=== PATIENT | male | born 1945 | race Caucasian/White ===

== ENCOUNTER 2016-06-10 15:08 | Outpatient (CLI) | payer OTHER, MEDICARE ==
--- NOTE | 2016-06-10 15:34 | DIAGNOSTIC IMAGING REPORT ---
PROCEDURE: CT HEAD WITHOUT CONTRAST INDICATION: MEMORY LOSS, initial encounter TECHNIQUE: Noncontrast axial images with sagittal and coronal reformations. COMPARISON: None. FINDINGS: Normal sulci and ventricular system. Mild of white matter chronic ischemic changes. No evidence of acute intracranial process. Visualized mastoids and sinuses are clear. IMPRESSION: 1. Mild white matter chronic ischemic changes
== END 2016-06-10 23:00 ==
LOC: CT SRH 15:08
DX: R41.3 Other amnesia (principal); R90.82 White matter disease, unspecified

== ENCOUNTER 2016-06-24 12:43 | Outpatient (CLI) | payer OTHER, MEDICARE ==
--- NOTE | 2016-06-24 15:37 | DIAGNOSTIC IMAGING REPORT ---
PROCEDURE: MR BRAIN W/WO CONTRAST INDICATION: MEMORY LOSS TECHNIQUE: Multiplanar multisequence MRI imaging of the brain without contrast. Post administration of 20 ml ProHance gadolinium based IV contrast, three plane T1 fat sat sequences were obtained. COMPARISON: Head CT dated 06/18/2016 FINDINGS: The midline structures are normally formed. The ventricular system is normal in size. Basal cisterns are patent. Flow voids in the major intracranial vessels are normal. No vascular malformations seen post contrast. Moderate periventricular small-vessel ischemic disease. No restricted diffusion to suggest acute ischemia. No evidence of acute or chronic intraparenchymal or extra-axial hemorrhage. No mass, mass effect, or midline shift. No suspicious enhancement. Normal signal in the visible bones. The sinuses are normally aerated. Visible extracranial soft tissues including the orbits are normal. IMPRESSION: 1. Moderate periventricular small-vessel ischemic disease.
== END 2016-06-24 23:00 ==
LOC: MRI SRH 12:43
DX: I67.82 Cerebral ischemia (principal)
CPT/HCPCS: 90074; 90100; 91585; 92912; 95059; 95150; 98480